=== PATIENT | female | born 1955 | race Caucasian/White ===

== ENCOUNTER 2018-06-07 09:45 | Emergency (ER) | payer BC ==
[~2018-06-07] VITALS: Ht 165.1 cm; Wt 61.4 kg
[2018-06-07] MEDS ORDERED: FLEXERIL 1010 MG/TAB PO (10:03)
[2018-06-07] MEDS ORDERED: ADVIL200 MG PO (10:04)
[2018-06-07] MEDS ORDERED: HCTZ 25MG TAB25 MG PO (10:04)
[2018-06-07] MEDS ORDERED: COZAAR 50MG50 MG/TAB PO (10:05)
[2018-06-07] MEDS ORDERED: NEURONTIN300 MG/CAP PO (10:05)
[2018-06-07] MEDS ORDERED: NAPROSYN500 MG PO (10:06)
[2018-06-07] MEDS ORDERED: TURMERIC500 MG PO (10:06)
[2018-06-07] MEDS ORDERED: OMEGA-3 1000 MG1 CAP PO (10:07)
[2018-06-07] MEDS ORDERED: MEDROL 4MG DOSPA4 MG PO (11:10)
[2018-06-07] MEDS ORDERED: LIDODERM 5% PATC1 EA TP (11:10)
[2018-06-07 11:22] VITALS: BP 119/83; PULSE 92; TEMP 97.7
== END 2018-06-07 11:25 | disposition home or self-care (01) ==
LOC: COL.ER 09:45
DX: M54.42 Lumbago with sciatica, left side (principal); G89.29 Other chronic pain; I10 Essential (primary) hypertension; F17.210 Nicotine dependence, cigarettes, uncomplicated; Z79.1 Long term (current) use of non-steroidal anti-inflammatories (NSAID)
CPT/HCPCS: J1885